=== PATIENT | female | born 1980 | race Caucasian/White ===

== ENCOUNTER 2016-12-19 15:24 | Emergency (ER) | payer OTHER ==
[2016-12-19 15:39] VITALS: BP 129/81
--- NOTE | 2016-12-19 15:51 | UC ---
Respiratory Complaint HPI - HPI Summary HPI Summary: The patient comes in today for: 1. Cough, sinus pressure, fatigue: Onset: 3 days ago. Palliative/provocative: Nothing makes her symptoms better or worse. Quality: Raspy. Region: Lungs and sinuses Severity: Headache: 6/10 Time: Cough lasts a few seconds. Headache is constant. Associated symptoms: Chest pain: None. Dyspnea: None. Wheezing: This morning. Fevers: 102.8 last night. Rhinitis: None. Cough: non-productive. * - History of Current Complaint Chief Complaint: UCGeneralIllness Stated Complaint: COUGH SINUS CONGESTION Time Seen by Provider: 12/19/16 15:45 Hx Obtained From: Patient Hx Last Menstrual Period: 12/15/16 ?: No - Allergies/Home Medications Allergies/Adverse Reactions: Allergies Allergy/AdvReac Type Severity Reaction Status Date / Time No Known Allergies Allergy Verified 09/05/16 14:15 Home Medications: Home Medications Acetaminophen TAB* [Tylenol TAB*] 500 mg PO Q4H PRN 12/19/16 [History Confirmed 12/19/16] PMH/Surg Hx/FS Hx/Imm Hx Previously Healthy: Yes Endocrine History Of: Denies: Diabetes, Thyroid Disease, Hyperthyroidism, Hypothyroidism, Dyslipidemia Cardiovascular History Of: Denies: Cardiac Disorders, Hypertension, Pacemaker/ICD, Myocardial Infarction , Congestive Heart Failure, Atrial Fibrillation, Deep Vein Thrombosis, Bleeding Disorders Respiratory History Of: Denies: COPD, Asthma, Bronchitis, Pneumonia, Pulmonary Embolism GI/ History Of: Denies: Gastroesophageal Reflux, Ulcer, Gastrointestinal Bleed, Gall Bladder Disease, Kidney Stones, Diverticulitis, Renal Disease, Urosepsis Neurological History Of: Reports: Migraine Denies: TIA, CVA, Dementia, Seizures Psychological History Of: Denies: Anxiety, Depression, Bipolar Disorder, Schizophrenia, Post Traumatic Stress Disorder Cancer History Of: Denies: Lung Cancer, Colorectal Cancer, Breast Cancer, Prostate Cancer, Cervical Cancer Other History Of: Negative For: HIV, Hepatitis B, Hepatitis C, Anticoagulant Therapy - Surgical History Surgical History: Yes Surgery Procedure, Year, and Place: tubal ligation - Family History Known Family History: Positive: Hypertension - Social History Alcohol Use: Occasionally Substance Use Type: None Smoking Status (MU): Never Smoked Tobacco - Immunization History Most Recent Influenza Vaccination: not this season Review of Systems Constitutional: Fever Skin: Negative Eyes: Negative ENT: Negative Respiratory: Cough Cardiovascular: Negative Gastrointestinal: Negative Genitourinary: Negative Musculoskeletal: Arthralgia, Myalgia All Other Systems Reviewed And Are Negative: Yes Physical Exam Triage Information Reviewed: Yes Appearance: No Pain Distress, Well-Nourished, Ill-Appearing - Mildly ill, coughing, tired. Vital Signs: Initial Vital Signs Temp 100 F 12/19/16 15:35 Pulse 101 12/19/16 15:35 Resp 16 12/19/16 15:35 BP 129/81 12/19/16 15:35 Pulse Ox 99 12/19/16 15:35 Vital Signs Reviewed: Yes Eyes: Positive: Conjunctiva Clear. Negative: Discharge ENT: Positive: Hearing grossly normal - Right ear canal: blocked by wax. After irrigation, TM was barth and translucent. No canal erythema or edema,. Negative: Pharyngeal erythema, Nasal congestion, Nasal drainage, TM bulging, TM dull, TM red, Tonsillar swelling, Tonsillar exudate Dental: Negative: Gross Decay/Caries @, Dental Fracture @ Neck: Positive: Supple, Nontender, No Lymphadenopathy. Negative: Nuchal Rigidity Respiratory: Positive: Chest non-tender, Lungs clear, No respiratory distress, No accessory muscle use. Negative: Crackles, Wheezing Cardiovascular: Positive: RRR, No Murmur Abdomen Description: Positive: Nontender, No Organomegaly, Soft. Negative: Distended, Guarding Musculoskeletal: Positive: Strength Intact, ROM Intact, No Edema Neurological: Positive: Alert, Muscle Tone Normal Psychological: Positive: Age Appropriate Behavior, Consolable Skin: Negative: rashes, breakdown UC Diagnostic Evaluation - Laboratory O2 Sat by Pulse Oximetry: 99 Respiratory Course/Dx - Differential Dx/Diagnosis Differential Diagnosis/HQI/PQRI: Asthma, Laryngitis, Sinusitis Provider Diagnoses: Right ear cerumen impaction. Viral syndrome. Sinusitis Discharge - Discharge Plan Condition: Stable Disposition: HOME Patient Education Materials: Sinusitis (ED), Viral Syndrome (ED) Referrals: Tayler Ceron MD [Primary Care Provider] - 1 Week (Please see your primary care provider in about a week to see how well you are doing. If you completely recover by then, you won't need to be seen. If you get worse while on treatment , please be seen sooner.)
== END 2016-12-19 16:43 | disposition home or self-care (01) ==
LOC: UCCORT 15:24
DX: J32.9 Chronic sinusitis, unspecified (principal); H61.21 Impacted cerumen, right ear
CPT/HCPCS: 99213; G0463